=== PATIENT | female | born 1990 | race Two or more races ===

== ENCOUNTER 2017-12-26 08:16 | Emergency (ER) | payer OTHER ==
[~2017-12-26] VITALS: Ht 165.1 cm; Wt 116.8 kg
[2017-12-26 08:19] VITALS: BP 141/115
[2017-12-26] MEDS ORDERED: KETOROLAC 30 MG/1 ML ONE (08:57)
[2017-12-26] MEDS ORDERED: KETOROLAC 30 MG/1 ML IM ONE (09:00)
== END 2017-12-26 10:15 | disposition home or self-care (01) ==
LOC: ED 10:00
DX: M54.5 Low back pain (principal); M25.551 Pain in right hip
CPT/HCPCS: 72110; 73502; 96372; 99284; J1885